=== PATIENT | male | born 1975 | race Caucasian/White ===

== ENCOUNTER 2016-04-02 17:53 | Emergency (ER) | payer OTHER ==
[2016-04-02] MEDS ORDERED: DILAUDID 1 MG/ML AMP ONE ×2 (20:18→21:30)
== END 2016-04-02 21:48 | disposition home or self-care (01) ==
LOC: ER 17:53
DX: G89.29 Other chronic pain (principal); M54.42 Lumbago with sciatica, left side
CPT/HCPCS: 96372